=== PATIENT | male | born 1965 | race Hispanic/Latino ===

== ENCOUNTER 2020-11-19 08:02 | Inpatient (IN) | payer MEDICAID, OTHER ==
[~2020-11-19] VITALS: Ht 160 cm; Wt 90.4 kg
[2020-11-19] MEDS ORDERED: FENTANYL CITRATE PF 50 MCG/1 ML 2ML VIAL IVP SCH (08:30)
[2020-11-19] MEDS ORDERED: ONDANSETRON 4MG INJ IVP SCH (08:30)
[2020-11-19 08:34] LABS: BASOPHILS % (AUTO) 0.7 % (0.0-5.0); EOSINOPHILS % (AUTO) 1.9 % (0.0-8.0); HEMATOCRIT 45.5 % (42-54); LYMPHOCYTES % (AUTO) 15.3 % (21.0-51.0); MEAN CORPUSCULAR HEMOGLOBIN 30.1 pg (27.0-33.0); MEAN CORPUSCULAR HGB CONC 34.5 g/dL (32.0-36.0); MEAN CORPUSCULAR VOLUME 87.3 fL (79-99); MONOCYTES % (AUTO) 11.5 % (3.0-13.0); PLATELET COUNT (AUTO) 254 K/uL (130-400); RED BLOOD CELL COUNT(AUTO) 5.21 MIL/uL (4.50-6.20); RED CELL DISTRIBUTION WIDTH 12.5 % (11.0-15.5)
[2020-11-19 08:36] LABS: APPEARANCE,URINE Clear (CLEAR); BILIRUBIN,URINE Negative (NEGATIVE); COLOR,URINE Yellow (YELLOW); GLUCOSE, URINE (UA) Negative (NEGATIVE); KETONES,URINE Trace mg/dL (NEGATIVE); LEUKOCYTE ESTERASE ,URINE Trace (NEGATIVE); NITRATE,URINE Negative (NEGATIVE); OCCULT BLOOD,URINE Negative (NEGATIVE); PH,URINE 5.5 (5.0-8.0); PROTEIN,URINE Negative (NEGATIVE)
[2020-11-19] MEDS ORDERED: ONDANSETRON 4MG INJ ONE (08:37)
[2020-11-19] MEDS ORDERED: FENTANYL CITRATE PF 50 MCG/1 ML 2ML VIAL ONE (08:38)
[2020-11-19 08:44] LABS: CREATININE 0.8 mg/dL (0.5-1.5)
[2020-11-19] MEDS ORDERED: FAMOTIDINE 20MG VIAL IV ONE (08:46)
[2020-11-19 08:48] LABS: ALBUMIN 3.6 g/dL (3.5-5.0); BILIRUBIN,TOTAL 0.8 mg/dL (0.2-1.0); TOTAL PROTEIN, SERUM 8.5 g/dL (6.0-8.3)
[2020-11-19] MEDS ORDERED: FAMOTIDINE 20MG VIAL IV SCH (09:00)
[2020-11-19 09:08] LABS: BACTERIA,URINE Rare /HPF (None Seen); RBC,URINE 0-1 /HPF (0-1); SQUAMOUS EPITHELIAL CELL,UR Rare /HPF (0-2); WBC,URINE 0-1 /HPF (0-1)
[2020-11-19] MEDS ORDERED: CEFTRIAXONE 1G VIAL IVP ONE (14:30)
[2020-11-19] MEDS ORDERED: ONDANSETRON 4MG INJ IV PRN (15:00)
[2020-11-19] MEDS ORDERED: KETOROLAC 15MG/ML VIAL (15MG/ML) IV PRN (15:00)
[2020-11-19] MEDS: ZOSYN 3.375GM +NS 50ML IV SCH ×2 (15:00→22:59)
[2020-11-19] MEDS ORDERED: NITROGLYCERIN 0.4 MG SL TAB SL PRN (15:00)
[2020-11-19] MEDS: LACTATED RINGERS 1000ML 1,000 ML IV SCH (15:00)
[2020-11-19] MEDS ORDERED: ZOSYN 3.375GM+NS 50ML 3.38 GM in 0.9%NACL 50ML 50 ML IV SCH (15:00)
[2020-11-19] MEDS: 0.9%NACL 50ML 50 ML IV SCH ×2 (15:00→22:59)
[2020-11-19] MEDS: INSULIN HUMULIN R 100 UNIT/ML 3ML SQ SCH ×2 (16:30→20:40)
[2020-11-19] MEDS ORDERED: CEFTRIAXONE 1G VIAL ONE (17:06)
[2020-11-19] MEDS: FAMOTIDINE 20MG VIAL IV SCH (20:40)
[2020-11-19 23:05] VITALS: BP 124/80
[2020-11-19] MEDS: MORPHINE 2 MG SYG IV PRN (23:50)
[2020-11-20] VITALS (13 sets, daily range): BP systolic 121–137; BP diastolic 70–86
[2020-11-20] MEDS: LACTATED RINGERS 1000ML 1,000 ML IV SCH ×2 (03:49→18:39)
[2020-11-20] MEDS: INSULIN HUMULIN R 100 UNIT/ML 3ML SQ SCH ×4 (05:45→23:58)
[2020-11-20] MEDS: ZOSYN 3.375GM +NS 50ML IV SCH ×3 (05:49→22:26)
[2020-11-20] MEDS: 0.9%NACL 50ML 50 ML IV SCH ×3 (05:50→22:26)
[2020-11-20 07:26] LABS: HEMATOCRIT 43.9 % (42-54); MEAN CORPUSCULAR HEMOGLOBIN 30.5 pg (27.0-33.0); MEAN CORPUSCULAR HGB CONC 33.7 g/dL (32.0-36.0); MEAN CORPUSCULAR VOLUME 90.3 fL (79-99); RED BLOOD CELL COUNT(AUTO) 4.86 MIL/uL (4.50-6.20); RED CELL DISTRIBUTION WIDTH 12.7 % (11.0-15.5); WHITE BLOOD COUNT (AUTO) 9.5 K/uL (4.8-10.8)
[2020-11-20 07:38] LABS: ALBUMIN 3.3 g/dL (3.5-5.0); CREATININE 0.9 mg/dL (0.5-1.5); POTASSIUM 3.8 mmol/L (3.5-5.1); TOTAL PROTEIN, SERUM 7.9 g/dL (6.0-8.3)
[2020-11-20] MEDS: FAMOTIDINE 20MG VIAL IV SCH ×2 (08:43→20:17)
[2020-11-20] MEDS: MORPHINE 2 MG SYG IV PRN (08:44)
[2020-11-20] MEDS ORDERED: FENTANYL CITRATE PF 50 MCG/1 ML 2ML VIAL ONE (11:10)
[2020-11-20] MEDS ORDERED: MIDAZOLAM HCL 1 MG/ML 2ML VIAL ONE (11:10)
[2020-11-20 11:46] LABS: INR 1.14 (0.85-1.15); PROTHROMBIN TIME 12.3 SEC (9.6-11.6)
[2020-11-20] MEDS ORDERED: DIATR MEGLU/DIATRIZOATE SODIUM 30 ML BOTTLE ONE (16:46)
[2020-11-20] MEDS ORDERED: IOHEXOL 350 MG/ML 100ML INFUS..BTL IV ONE (17:48)
[2020-11-21 03:20] VITALS: BP 132/85
[2020-11-21] MEDS: INSULIN HUMULIN R 100 UNIT/ML 3ML SQ SCH ×2 (05:23→12:00)
[2020-11-21 05:24] LABS: HEMATOCRIT 41.6 % (42-54); MEAN CORPUSCULAR HEMOGLOBIN 29.7 pg (27.0-33.0); MEAN CORPUSCULAR HGB CONC 33.9 g/dL (32.0-36.0); MEAN CORPUSCULAR VOLUME 87.8 fL (79-99); RED BLOOD CELL COUNT(AUTO) 4.74 MIL/uL (4.50-6.20); RED CELL DISTRIBUTION WIDTH 12.2 % (11.0-15.5); WHITE BLOOD COUNT (AUTO) 10.9 K/uL (4.8-10.8)
[2020-11-21] MEDS: LACTATED RINGERS 1000ML 1,000 ML IV SCH (06:03)
[2020-11-21] MEDS: 0.9%NACL 50ML 50 ML IV SCH ×2 (06:03→16:06)
[2020-11-21] MEDS: ZOSYN 3.375GM +NS 50ML IV SCH ×2 (06:03→16:05)
[2020-11-21 07:10] LABS: ALBUMIN 3.1 g/dL (3.5-5.0); BILIRUBIN,TOTAL 1.2 mg/dL (0.2-1.0); CREATININE 0.9 mg/dL (0.5-1.5); POTASSIUM 3.8 mmol/L (3.5-5.1); TOTAL PROTEIN, SERUM 7.6 g/dL (6.0-8.3)
[2020-11-21 08:00] VITALS: BP 130/75
[2020-11-21 08:15] LABS: HEPATITIS A ANTIBODY IGM Negative (Negative); HEPATITIS B CORE IGM Negative (Negative); HEPATITIS Bs ANTIGEN SCREEN P Negative (Negative)
[2020-11-21] MEDS: FAMOTIDINE 20MG VIAL IV SCH (10:18)
[2020-11-21 11:53] VITALS: BP 136/88
[2020-11-21 16:00] VITALS: BP 143/78
== END 2020-11-21 19:45 | disposition home or self-care (01) | DRG 446 ==
LOC: EDH 08:02 → OBSVTOIN 08:03 → EDHIP 08:03 → 3CH 21:31
PROVIDERS: ADMIT Internal Medicine; ATTEND Internal Medicine
PROC: 0FB03ZX Excision of Liver, Percutaneous Approach, Diagnostic (ICD-10-PCS; principal; 2020-11-20)
DX: K80.10 Calculus of gallbladder with chronic cholecystitis without obstruction (principal); R79.89 Other specified abnormal findings of blood chemistry; K76.0 Fatty (change of) liver, not elsewhere classified; E11.9 Type 2 diabetes mellitus without complications; E78.5 Hyperlipidemia, unspecified; I10 Essential (primary) hypertension; Z20.822 Contact with and (suspected) exposure to COVID-19; Z82.49 Family history of ischemic heart disease and other diseases of the circulatory system
CPT/HCPCS: 36415; 47000; 71046; 74176; 74177; 74181; 76705; 76942; 80053; 80074; 81001; 82150; 82948; 83690; 85025; 85027; 85610; 85730; 87635; 99152; 99153; G0378; J0696; J2250; J2405; J2543; J3010; J3490; J7120; Q9963; Q9967